=== PATIENT | male | born 1950 | race Caucasian/White ===

== ENCOUNTER 2016-11-23 09:06 | Inpatient (IN) | payer MEDICARE, OTHER ==
[~2016-11-23] VITALS: Ht 167.6 cm; Wt 88.6 kg
--- NOTE | 2016-11-23 09:06 | NUR ---
PT BIBA TO BED 5.
[2016-11-23 09:09] VITALS: BP 152/75
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
--- NOTE | 2016-11-23 09:14 | NUR ---
ER MD DR. RAMOS EVALUATING PT AT BEDSIDE.
[2016-11-23] MEDS ORDERED: KETOROLAC 60 MG/2 ML VIAL IM ONE (09:20)
[2016-11-23] MEDS ORDERED: oxyCODONE/APAP 5/325 MG 1 TAB TAB PO ONE (09:20)
--- NOTE | 2016-11-23 09:30 | NUR ---
PT TAKEN TO XRAY VIA W/C AT THIS TIME.
--- NOTE | 2016-11-23 10:30 | NUR ---
Patient appears to be resting comfortably in bed. Respirations even and unlabored. FAMILY AT BEDSIDE. DENIES ANY ACUTE DISTRESS AT THIS TIME TIME; WILL CONTINUE TO MONITOR.
--- NOTE | 2016-11-23 11:10 | NUR ---
DURING D/C, PT HR NOTED TO BE 47 AT THIS TIME; ER MD DR. RAMOS NOTIFIED.
[2016-11-23] MEDS ORDERED: NACL 0.9% 1,000 ML IV ONE (11:15)
--- NOTE | 2016-11-23 11:24 | NUR ---
PT TAKEN TO XRAY VIA W/C ACCOMPANIED BY [employer].
[2016-11-23 11:27] LABS: BASOPHILS # (AUTO) 0.2 K/uL (0.00-0.22); BASOPHILS % (AUTO) 4.1 % (0.0-2.0); EOSINOPHILS # (AUTO) 0.2 K/uL (0-0.4); HEMATOCRIT 43.5 % (36-52); HEMOGLOBIN 14.7 g/dL (12.0-18.0); LYMPHOCYTES # (AUTO) 1.9 K/uL (2.0-11.5); LYMPHOCYTES % (AUTO) 35.5 % (20.5-51.1); MEAN CORPUSCULAR HEMOGLOBIN 33 pg (27-31); MEAN CORPUSCULAR HGB CONC 34 g/dL (33-37); MEAN CORPUSCULAR VOLUME 96 fL (80-94); MONOCYTES # (AUTO) 0.4 K/uL (0.8-1.0); MONOCYTES % (AUTO) 7.2 % (1.7-9.3); NEUTROPHILS # (AUTO) 2.6 K/uL (1.8-7.7); NEUTROPHILS % (AUTO) 50.2 % (42.2-75.2); PLATELET COUNT (AUTO) 124 K/uL (140-450); RED BLOOD CELL COUNT(AUTO) 4.52 MIL/uL (4.20-6.10); RED CELL DISTRIBUTION WIDTH 11.7 % (11.6-13.7); WHITE BLOOD COUNT (AUTO) 5.3 K/uL (4.8-10.8)
[2016-11-23 11:38] LABS: ANION GAP 11.6 (8-16); CALCIUM 9.4 mg/dL (8.5-10.1); CARBON DIOXIDE 27.3 mmol/L (21-32); CREATININE 0.9 mg/dL (0.6-1.3); POTASSIUM 3.9 mmol/L (3.5-5.1)
[2016-11-23 11:44] LABS: ALBUMIN 3.7 g/dL (3.4-5.0); TOTAL BILIRUBIN 0.5 mg/dL (0.0-1.0); TOTAL PROTEIN, SERUM 7.1 g/dL (6.4-8.2)
[2016-11-23] MEDS ORDERED: ATROPINE 0.4 MG/ML VIAL IVP ONE (11:55)
[2016-11-23] MEDS: NACL 0.9% 1,000 ML IV SCH (12:19)
[2016-11-23] MEDS ORDERED: HYDROcodone/APAP 7.5/325 MG 1 TAB PO PRN (12:20)
[2016-11-23] MEDS ORDERED: ONDANSETRON 4 MG/2 ML VIAL IVP PRN (12:20)
[2016-11-23] MEDS ORDERED: ACETAMINOPHEN 325 MG TAB PO PRN (12:20)
[2016-11-23] MEDS ORDERED: MORPHINE SULFATE 2 MG/ML SYR IVP PRN (12:20)
--- NOTE | 2016-11-23 12:20 | NUR ---
CALLED PHARMACY FOR MEDICATION NOT AVAILABLE IN [place]; PHARMACY ADVISED FOR ER MD DR. RAMOS TO RE-ENTER MEDICATION USING PREFILLED SYRINGE OPTION; ER MD DR. RAMOS NOTIFIED.
--- NOTE | 2016-11-23 12:24 | NUR ---
PT TAKEN TO CT VIA W/C ACCOMPANIED BY [employer] AT THIS TIME.
[2016-11-23] MEDS ORDERED: ATROPINE 0.5 MG/5 ML SYR IVP ONE ×2 (12:25→12:45)
[2016-11-23] MEDS ORDERED: MECLIZINE 25 MG TAB PO PRN (12:30)
[2016-11-23] MEDS ORDERED: ATROPINE 1 MG/10 ML SYR IVP ONE (12:50)
--- NOTE | 2016-11-23 12:56 | NUR ---
CALLED [facility] TO GIVE REPORT; DARIEL SAMPSON WILL CALL BACK. WILL CONTINUE TO MONITOR.
[2016-11-23 13:04] LABS: INR 1.1 (0.8-1.2); PARTIAL THROMBOPLASTIN TIME 27.9 secs (22-35.6); PROTHROMBIN TIME 10.2 secs (10.8-13.4)
--- NOTE | 2016-11-23 13:12 | NUR ---
REPORT GIVEN TO DARIEL AMBROSE
[2016-11-23 13:14] LABS: CHOL/HDL RATIO 5.4 (1-4.5); FREE T4 (FREE THYROXINE) 1.14 ng/dL (0.76-1.46); MAGNESIUM 2.1 mg/dL (1.8-2.4); PHOSPHORUS 2.2 mg/dL (2.5-4.9); THYROID STIMULATING HORMONE 1.69 uIU/mL (0.34-3.76)
--- NOTE | 2016-11-23 13:20 | NUR ---
Patient will be admitted to care of DR. EDOUARD. Admited to TELEMETRY. Will go to room 112B. Belongings list completed. Report to DARIEL AMBROSE.
[2016-11-23 13:35] VITALS: BP 129/87
--- NOTE | 2016-11-23 13:45 | NUR ---
RECEIVED PT ON UNIT VIA GURNEY, PT IS A/OX4, PT ABLE TO AMBULATE, IV ON THE LT HAND, PATENT, INTACT, FLUSHING WELL, RECEIVING NS, SKIN IS INTACT, NO S/S OF RESPIRATORY DISTRESS OR DISCOMFORT NOTED, SAFETY/FALL PRECAUTIONS ARE IN PLACE, DISCUSSED PLAN OF CARE WITH PT, PT VERBALIZED UNDERSTANDING, ORIENTED PT TO ROOM, CALL LIGHT IS WITHIN REACH, WILL CONTINUE TO MONITOR.
--- NOTE | 2016-11-23 15:30 | NUR ---
PT IS RESTING IN BED, WATCHING TV, CALL LIGHT WITHIN REACH, WILL CONTINUE TO MONITOR.
[2016-11-23 15:54] LABS: APPEARANCE,URINE CLEAR (CLEAR); BILIRUBIN,URINE NEGATIVE (NEGATIVE); BLOOD, URINE NEGATIVE (NEGATIVE); COLOR,URINE YELLOW (YELLOW); LEUKOCYTE ESTERASE ,URINE NEGATIVE (NEGATIVE); NITRITE, URINE NEGATIVE (NEGATIVE); PROTEIN,URINE NEGATIVE (NEGATIVE); UGLUCOSE NEGATIVE (NEGATIVE); UROBILINOGEN,URINE 0.2 EU/dL (0.2 - 1)
[2016-11-23 16:00] VITALS: BP_SYST 108; BP_SYST 129; BP_DIAS 78; BP_DIAS 87
[2016-11-23 16:00] LABS: AMPHETAMINE, URINE NEG. ng/ml (NEG <=1000); BARBITURATE, URINE NEG. ng/ml (NEG <=200); BENZODIAZEPINE, URINE NEG. ng/mL (NEG <=200); CANNABINOID, URINE NEG. ng/mL (NEG <=50); COCAINE, URINE NEG. ng/mL (NEG <=300); OPIATE, URINE NEG. ng/mL (NEG <=2000); PHENCYCLIDINE SCREEN,URINE NEG. ng/mL (NEG <=25)
[2016-11-23] MEDS ORDERED: PNEUMOCOCCAL VACCINE 23 MCG/0.5 ML VIAL IMVAC SCH (16:05)
[2016-11-23 16:40] LABS: BACTERIA,URINE RARE /HPF (None Seen); RBC,URINE 0-3 /HPF (0-5); SQUAMOUS EPITHELIAL CELL,UR None Seen /LPF (0-3 (FEW)); WBC,URINE 0-5 /HPF (0-5)
--- NOTE | 2016-11-23 17:30 | NUR ---
PT IS SITTING IN BED WATCHING TV AT THIS TIME.
--- NOTE | 2016-11-23 19:50 | NUR ---
ENDORSED PT TO DARIEL COSBY. FOR CONTINUITY OF CARE. PT STABLE AT THIS TIME.
--- NOTE | 2016-11-23 19:50 | NUR ---
RECEIVED REPORT FROM MORNING NURSE AT BEDSIDE, PT IS AAOX4, ABLE TO FOLLOW COMMANDS AND MAKE NEEDS KNOWN, C/O PAIN TO LEFT NECK TO LEFT SHOULDER, /, REFUSED PAIN MEDICATION, OFFERED ICE PAD, DENIES SOB, BREATHING EVEN AND UNLABORED, CLEAR LUNG SOUNDS, ON RA. DENIES CHEST PAIN, ON TELE MONITOR WITH SB, SOFT ABDOMEN WITH ACTIVE BOWEL SOUNDS, CONTINENT WITH B&B'S, ABLE TO AMBULATE WITH STEADY GAIT, AFEBRILE, SKIN IS INTACT, WARM AND DRY TO TOUCH. VSS. IV SITE TO RIGHT HAND 22GA RUNNING NS AT 50ML/HR, EXPLAINED PLAN OF CARE TO PT, PT VERBALIZED UNDERSTANDING, FALL PRECAUTION MAINTAINED, CALL LIGHT WITHIN REACH, WILL CONTINUE TO MONITOR.
[2016-11-23 20:00] VITALS: BP 114/69
--- NOTE | 2016-11-23 20:45 | NUR ---
PT IS OFF UNIT FOR CT
--- NOTE | 2016-11-23 21:05 | NUR ---
PT IS BACK TO ROOM.
--- NOTE | 2016-11-23 21:10 | NUR ---
SCHEDULED MEDICATION GIVEN, PT TOLERATED WELL.
[2016-11-23] MEDS: DOCUSATE SODIUM 100 MG GELCAP PO SCH (21:13)
[2016-11-23] MEDS: SODIUM PHOS / POTASSIUM PHOS 1 PKT PDR PO SCH (21:13)
[2016-11-24] VITALS: BP 114/69
--- NOTE | 2016-11-24 | NUR ---
PT IS ASLEEP, SB STILL ON TELE MONITOR.
[2016-11-24 04:00] VITALS: BP 111/68
--- NOTE | 2016-11-24 04:00 | NUR ---
NO CHANGE OF CONDITION AT THIS TIME,VSS.
--- NOTE | 2016-11-24 07:05 | NUR ---
PT IS IN STABLE CONDITION AT THIS TIME, REPORT GIVEN TO MORNING SHIFT NURSE FOR CONTINUE OF CARE.
[2016-11-24 07:12] LABS: BASOPHILS # (AUTO) 0.1 K/uL (0.00-0.22); BASOPHILS % (AUTO) 1.4 % (0.0-2.0); EOSINOPHILS # (AUTO) 0.2 K/uL (0-0.4); EOSINOPHILS % (AUTO) 2.7 % (0.0-4.0); HEMATOCRIT 42.3 % (36-52); HEMOGLOBIN 14.5 g/dL (12.0-18.0); LYMPHOCYTES % (AUTO) 32.9 % (20.5-51.1); MEAN CORPUSCULAR HEMOGLOBIN 33 pg (27-31); MEAN CORPUSCULAR HGB CONC 34 g/dL (33-37); MEAN CORPUSCULAR VOLUME 95 fL (80-94); MONOCYTES # (AUTO) 0.5 K/uL (0.8-1.0); MONOCYTES % (AUTO) 9.1 % (1.7-9.3); NEUTROPHILS # (AUTO) 3.1 K/uL (1.8-7.7); NEUTROPHILS % (AUTO) 53.9 % (42.2-75.2); PLATELET COUNT (AUTO) 120 K/uL (140-450); RED BLOOD CELL COUNT(AUTO) 4.44 MIL/uL (4.20-6.10); RED CELL DISTRIBUTION WIDTH 11.7 % (11.6-13.7); WHITE BLOOD COUNT (AUTO) 5.9 K/uL (4.8-10.8)
--- NOTE | 2016-11-24 07:30 | NUR ---
RECEIVED REPORT FROM NIGHT NURSE ALEA AT BEDSIDE, PT IS AAOX4, ABLE TO FOLLOW COMMANDS . PT STATED PAIN TO LEFT NECK TO LEFT SHOULDER BUT REFUSED PAIN MEDICATION. NO S/S OF RESPIRATORY DISTRESS NOTED. CLEAR LUNG SOUNDS. DENIES CHEST PAIN, ON TELE MONITOR WITH SB, SOFT ABDOMEN WITH ACTIVE BOWEL SOUNDS. SKIN IS INTACT, WARM AND DRY TO TOUCH. IV SITE TO RIGHT HAND 22GA RUNNING NS AT 50ML/HR, EXPLAINED PLAN OF CARE TO PT, PT VERBALIZED UNDERSTANDING, FALL PRECAUTION MAINTAINED, CALL LIGHT WITHIN REACH, WILL CONTINUE TO MONITOR.
[2016-11-24 08:00] VITALS: BP 106/69
[2016-11-24] MEDS: SODIUM PHOS / POTASSIUM PHOS 1 PKT PDR PO SCH ×3 (08:00→17:51)
[2016-11-24] MEDS: NACL 0.9% 1,000 ML IV SCH (08:19)
[2016-11-24 08:48] LABS: ANION GAP 13.4 (8-16); CALCIUM 9.7 mg/dL (8.5-10.1); CARBON DIOXIDE 26.1 mmol/L (21-32); CREATININE 0.9 mg/dL (0.6-1.3); POTASSIUM 4.5 mmol/L (3.5-5.1)
[2016-11-24] MEDS: PANTOPRAZOLE 40 MG INJ VIAL IVP SCH (09:17)
[2016-11-24] MEDS: DOCUSATE SODIUM 100 MG GELCAP PO SCH ×2 (09:17→20:40)
--- NOTE | 2016-11-24 09:19 | NUR ---
PATIENT HAS BEEN SCREENED AND CATEGORIZED HIGH NUTRITION RISK. PATIENT WILL BE SEEN WITHIN 1-2 DAYS OF ADMISSION. 11/23/16-11/24/[address]
--- NOTE | 2016-11-24 09:20 | NUR ---
DUE MEDS GIVEN, TOLERATED WELL.
--- NOTE | 2016-11-24 11:30 | NUR ---
PT FAMILY AT BEDSIDE.
[2016-11-24 11:50] LABS: MAGNESIUM 2.2 mg/dL (1.8-2.4)
[2016-11-24 12:00] VITALS: BP 110/69
--- NOTE | 2016-11-24 12:23 | NUR ---
11/24/16 RD INITIAL ASSESSMENT COMPLETED PLEASE REFER TO NUTRITION ASSESSMENT UNDER CARE ACTIVITY FOR ESTIMATED NUTRITIONAL NEEDS. 1. CONTINUE REGULAR DIET 2. RD TO FOLLOW-UP 5-7 DAYS; LOW RISK SUKH FUENTES [address]
--- NOTE | 2016-11-24 12:40 | NUR ---
PT FAMILY HAD CONVERSATION WITH DR. MOTA REGARDING PT'S CONDITION. PER DR. MOTA PT WILL STAY HERE FOR ONE MORE DAY FOR CLOSE OBSERVATION.
--- NOTE | 2016-11-24 13:18 | NUR ---
P.T. NOTES P.T. EVAL DONE; NURSING TO AMBULATE PATIENT AD [place].
--- NOTE | 2016-11-24 15:55 | NUR ---
PT RESTING IN BED. NO S/S OF RESPIRATORY DISTRESS NOTED. WILL CONTINUE TO MONITOR.
[2016-11-24 16:00] VITALS: BP 115/68
--- NOTE | 2016-11-24 18:50 | NUR ---
PT AWAKE, ALERT, AND ORIENTED. NO SOB, ON ROOM AIR. CALL LIGHT IN REACH. SAFETY MAINTAINED.
--- NOTE | 2016-11-24 19:30 | NUR ---
RECEIVED REPORT FROM THOM VIEIRA AT BEDSIDE. PT IS ALERT AWAKE ORIENTED X4. INITIAL ASSESSMENT DONE. NO S/S OF RESPIRATORY DISTRESS OR SOB NOTED. NO C/O PAIN OR ANY DISCOMFORT AT THIS TIME. PLAN OF CARE REVIEWED TO PT AND FAMILY AT BEDSIDE AND VERBALIZED UNDERSTANDING. CALL LIGHT WITHIN REACH. WILL CONTINUE TO MONITOR.
[2016-11-24 20:00] VITALS: BP 132/78
[2016-11-25] VITALS: BP 129/75
--- NOTE | 2016-11-25 00:30 | NUR ---
PT IS SLEEPING RIGHT NOW BUT EASILY AROUSABLE. NO S/S OF ANY DISCOMFORT AT THIS TIME. ALL NEEDS ARE ATTENDED. CALL LIGHT WITHIN REACH. WILL CONTINUE TO MONITOR.
[2016-11-25 04:00] VITALS: BP 125/74
[2016-11-25] MEDS: NACL 0.9% 1,000 ML IV SCH (04:19)
--- NOTE | 2016-11-25 05:45 | NUR ---
AM CARE RENDERED. BED LINEN CHANGED. INSTRUCTED PT TO REPOSITION. KEPT CLEAN AND DRY. CALL LIGHT WITHIN REACH. WILL CONTINUE TO MONITOR.
[2016-11-25 05:49] LABS: BASOPHILS # (AUTO) 0.1 K/uL (0.00-0.22); BASOPHILS % (AUTO) 1.7 % (0.0-2.0); EOSINOPHILS # (AUTO) 0.2 K/uL (0-0.4); EOSINOPHILS % (AUTO) 2.9 % (0.0-4.0); HEMATOCRIT 41.6 % (36-52); HEMOGLOBIN 14.5 g/dL (12.0-18.0); LYMPHOCYTES # (AUTO) 2.3 K/uL (2.0-11.5); LYMPHOCYTES % (AUTO) 33.7 % (20.5-51.1); MEAN CORPUSCULAR HEMOGLOBIN 33 pg (27-31); MEAN CORPUSCULAR HGB CONC 35 g/dL (33-37); MEAN CORPUSCULAR VOLUME 96 fL (80-94); MONOCYTES # (AUTO) 0.5 K/uL (0.8-1.0); MONOCYTES % (AUTO) 8.1 % (1.7-9.3); NEUTROPHILS # (AUTO) 3.7 K/uL (1.8-7.7); NEUTROPHILS % (AUTO) 53.6 % (42.2-75.2); PLATELET COUNT (AUTO) 118 K/uL (140-450); RED BLOOD CELL COUNT(AUTO) 4.34 MIL/uL (4.20-6.10); RED CELL DISTRIBUTION WIDTH 11.9 % (11.6-13.7); WHITE BLOOD COUNT (AUTO) 6.8 K/uL (4.8-10.8)
[2016-11-25 06:20] LABS: MAGNESIUM 2.1 mg/dL (1.8-2.4); PHOSPHORUS 3.6 mg/dL (2.5-4.9)
[2016-11-25 06:22] LABS: ANION GAP 10.4 (8-16); CALCIUM 9.5 mg/dL (8.5-10.1); CARBON DIOXIDE 29.1 mmol/L (21-32); POTASSIUM 4.5 mmol/L (3.5-5.1)
--- NOTE | 2016-11-25 07:20 | NUR ---
RECEIVED PATIENT REPORT AT BEDSIDE. PATIENT AWAKE, ALERT AND ORIENTED. NO S/S OF DISTRESS NOTED. NO C/O OF PAIN. PATIENT ON TELE MONITORING. BED LOWERED WITH CALL LIGHT WITHIN REACH. WILL CONTINUE TO MONITOR
--- NOTE | 2016-11-25 07:24 | NUR ---
PT HAS NO S/S OF ANY DISCOMFORT. PLAN OF CARE ENDORSED TO AM SHIFT NURSE FOR CONTINUITY OF CARE.
[2016-11-25 08:00] VITALS: BP 139/101
[2016-11-25] MEDS: PANTOPRAZOLE 40 MG INJ VIAL IVP SCH (08:50)
[2016-11-25] MEDS: SODIUM PHOS / POTASSIUM PHOS 1 PKT PDR PO SCH ×2 (08:50→12:05)
[2016-11-25] MEDS: DOCUSATE SODIUM 100 MG GELCAP PO SCH (08:50)
[2016-11-25 12:00] VITALS: BP 127/83
--- NOTE | 2016-11-25 13:00 | NUR ---
PATIENT RESTING COMFORTABLY IN BED. NO S/S OF DISTRESS NOTED
[2016-11-25] MEDS ORDERED: ATOR20TA PO (13:13)
[2016-11-25] MEDS ORDERED: METH750T5 PO (13:13)
[2016-11-25] MEDS ORDERED: DOCU-67 PO (13:13)
[2016-11-25] MEDS ORDERED: MECL-270 PO (13:13)
[2016-11-25] MEDS ORDERED: ACET-2869 PO (13:13)
[2016-11-25] MEDS ORDERED: ASPI81TA28 PO (13:42)
--- NOTE | 2016-11-25 14:25 | NUR ---
PATIENT DISCHARGED TO HOME. DISCHARGE INSTRUCTIONS AND DISCHARGE PRESCRIPTIONS GIVEN. PATIENT VERBALIZED UNDERSTANDING. IV LINE DISCONTINUED. TELE LEADS TAKEN OFF. PATIENT LEFT WITH ALL HIS BELONGINGS AND DISCHARGE PAPERS. PATIENT LEFT IN STABLE CONDITION
== END 2016-11-25 14:25 | disposition home or self-care (01) | DRG 74 ==
LOC: MED 09:06 → MTU 12:30
PROVIDERS: ADMIT Family Medicine; ATTEND Family Medicine
DX: G90.9 Disorder of the autonomic nervous system, unspecified (principal); I42.9 Cardiomyopathy, unspecified; E66.9 Obesity, unspecified; E83.39 Other disorders of phosphorus metabolism; E78.1 Pure hyperglyceridemia; R00.1 Bradycardia, unspecified; S43.402A Unspecified sprain of left shoulder joint, initial encounter; S43.401A Unspecified sprain of right shoulder joint, initial encounter; K44.9 Diaphragmatic hernia without obstruction or gangrene; S13.4XXA Sprain of ligaments of cervical spine, initial encounter; Y93.89 Activity, other specified; Y92.89 Other specified places as the place of occurrence of the external cause; Z68.30 Body mass index [BMI] 30.0-30.9, adult; Y99.8 Other external cause status; V43.02XA Car driver injured in collision with other type car in nontraffic accident, initial encounter
CPT/HCPCS: 36415; 70450; 73030; 80048; 80053; 80305; 81001; 82140; 82150; 83036; 83690; 83735; 83880; 84100; 84439; 84443; 84484; 85025; 85610; 85730; 87081; 90732; 93005; 93880; 96361; 96372; 96374; 99291; C9113; J0461; J1885; J7030; Q0092; Q9967